=== PATIENT | male | born 1950 | race African-American/Black ===

== ENCOUNTER → 2017-08-18 | Outpatient (CLI) | payer MEDICARE, OTHER | LOC: COL.RAD 08:04 | DX: M25.551 Pain in right hip (principal); G89.18 Other acute postprocedural pain; Z96.641 Presence of right artificial hip joint ==

== ENCOUNTER → 2017-09-26 | Outpatient (CLI) | payer MEDICARE, OTHER | LOC: COL.RAD 08:00 | DX: M25.551 Pain in right hip (principal); G89.29 Other chronic pain | CPT/HCPCS: J3301; Q9967 ==

== ENCOUNTER 2019-05-29 07:45 | Outpatient (RCR) | payer MEDICARE, OTHER | END 2019-06-05 | LOC: WSPT | DX: E66.9 Obesity, unspecified (principal); M25.561 Pain in right knee; M25.562 Pain in left knee; M54.5 Low back pain; G89.29 Other chronic pain ==

== ENCOUNTER 2020-08-07 10:56 | Day surgery (SDC) | payer MEDICARE, OTHER ==
[2020-08-07] VITALS (197 sets, daily range): BP systolic 92–143; BP diastolic 66–85; PULSE 55–78; TEMP 97.8–98; O2SAT 61–100
[~2020-08-07] VITALS: Ht 175.3 cm; Wt 92.2 kg
[2020-08-07 12:11] LABS: HEMATOCRIT 37.9 % (42.0-52.0); HEMOGLOBIN 12.6 g/dl (13.5-18.0); MEAN CELL VOLUME 96 fl (80.0-100.0); MEAN CORPUSCULAR HEMOGLOBIN 32 pg (27.0-31.0); MEAN CORPUSCULAR HGB CONC 33 g/dl (33.0-37.0); MEAN PLATELET VOLUME 11.4 fl (7.4-10.4); PLATELET COUNT 210 K/mm3 (130-400); RED BLOOD COUNT 3.96 M/mm3 (4.20-5.60); REDCELL DISTRIBUTION WIDTH-CV 13.1 % (11.5-14.5)
[2020-08-07 12:19] LABS: CALCIUM 9.4 mg/dL (8.4-10.2); CREATININE, serum 1.71 (0.66-1.25); POTASSIUM 4.4 mmol/L (3.4-5.0)
[2020-08-07 12:23] LABS: PROTHROMBIN TIME 11.3 SECONDS (9.7-12.8)
[2020-08-07] MEDS ORDERED: ASPIRIN E.C. 8181 MG PO (12:36)
[2020-08-07] MEDS ORDERED: MEVACOR10 MG PO (12:36)
[2020-08-07] MEDS ORDERED: ZYLOPRIM 100MG100 MG PO (12:37)
[2020-08-07] MEDS ORDERED: NOVOLOG 100U100 U/M1 SQ (12:37)
[2020-08-07] MEDS ORDERED: ACCUPRIL40MGTAB PO (12:38)
[2020-08-07] MEDS ORDERED: PRILOSEC 20MG20 MG PO (12:39)
[2020-08-07] MEDS ORDERED: NITROSTAT0.4 MG/TAB SL (12:39)
[2020-08-07] MEDS ORDERED: PHENTERMINE15 MG PO (12:40)
[2020-08-07] MEDS ORDERED: VICTOZA6 MG/ML SQ (12:40)
[2020-08-07] MEDS ORDERED: TOPAMAX 25MG25 M1 PO (12:41)
[2020-08-07] MEDS ORDERED: DAILY MULTIPLE1 T18 PO (12:42)
--- NOTE | 2020-08-07 19:16 | NUR ---
report received from BRAYAN Brown.
--- NOTE | 2020-08-07 20:00 | NUR ---
PT STILL ON FLAT TIME DOING WELL, NO COMPLAINTS OF PAIN/SOB/DISCOMFORT. PT'S RIGHT FEMORAL SITE WITH GAUZE AND TEGADERM, C/D/I, PULSES ON EXTREMITIES GOOD AND NO HEMATOMA OR BLEEDING NOTED.
--- NOTE | 2020-08-07 21:55 | NUR ---
FLAT TIME DONE. PT DENIES ANY PAIN/DISCOMFORT. VSS. RIGHT FEMORAL SITE C/D/I, NO HEMATOMA NOR BLEEDING NOTED.
[2020-08-08] VITALS (122 sets, daily range): BP systolic 114–154; BP diastolic 67–80; PULSE 57–80; TEMP 97.8–98; O2SAT 91–100
--- NOTE | 2020-08-08 04:27 | NUR ---
REPORT GIVEN TO BRAYAN ELIAS.
--- NOTE | 2020-08-08 05:10 | NUR ---
Received report from Olga and received patient via wheelchair from ICU. Patient is alert and oriented. With INT on left forearm. Gauze on right femoral is clean, dry and intact. He denies pain. Call light within reach.
--- NOTE | 2020-08-08 05:12 | NUR ---
pt transferred to room 318 via wheelchair, all belongings with him. pt's right femoral site showed to Nurse Kay. site c/d/i, no hematoma or bleeding.
[2020-08-08 05:18] LABS: BASO % 0.5 % (0.0-2.0); EOS # 0.3 (0.0-0.7); GRAN # 3.4 (1.4-6.5); GRAN % 58.6 % (42.2-75.2); HEMATOCRIT 38.8 % (42.0-52.0); HEMOGLOBIN 12.7 g/dl (13.5-18.0); LYMPH # 1.5 (1.2-3.4); MEAN CELL VOLUME 95 fl (80.0-100.0); MEAN CORPUSCULAR HEMOGLOBIN 31 pg (27.0-31.0); MEAN CORPUSCULAR HGB CONC 33 g/dl (33.0-37.0); MEAN PLATELET VOLUME 11.2 fl (7.4-10.4); MONO # 0.6 (0.1-0.6); MONO % 9.6 % (1.7-9.3); PLATELET COUNT 191 K/mm3 (130-400); RED BLOOD COUNT 4.08 M/mm3 (4.20-5.60); REDCELL DISTRIBUTION WIDTH-CV 13.2 % (11.5-14.5)
[2020-08-08 05:25] LABS: CALCIUM 9.1 mg/dL (8.4-10.2); CREATININE, serum 1.76 (0.66-1.25); POTASSIUM 4.3 mmol/L (3.4-5.0)
--- NOTE | 2020-08-08 09:34 | NUR ---
Pt assessment complete. Pt is laying in bed upon entry, he is A/O x4. His breathing is even and unlabored on RA. Pt denies SOB. Reports dull pain to cath entry site of R femoral. Site free from hematoma and is CDI. POC discussed with patient who verbalizes understanding. No further needs at this time. Call light within reach.
--- NOTE | 2020-08-08 11:22 | NUR ---
Discharge paperwork and instructions reviewed with patient. All questions answered at this time. IV to LFA dc'd catheter tip intact. Pt awaiting ride at this time.
--- NOTE | 2020-08-08 12:15 | NUR ---
Pt wheeled out at this time.
== END 2020-08-08 12:15 | disposition home or self-care (01) ==
LOC: COL.CAR 10:56 → ICU 17:42 → MEDICAL 08-08 04:59 → ICU 08-08 04:59 → MEDICAL 08-08 04:59 → COL.CAR 08-08 12:15
PROVIDERS: Internal Medicine Interventional Cardiology
DX: I25.10 Atherosclerotic heart disease of native coronary artery without angina pectoris (principal); E11.9 Type 2 diabetes mellitus without complications; E78.5 Hyperlipidemia, unspecified; F32.9 Major depressive disorder, single episode, unspecified; D64.9 Anemia, unspecified; Z79.4 Long term (current) use of insulin; Z79.82 Long term (current) use of aspirin; Z79.899 Other long term (current) drug therapy; I08.3 Combined rheumatic disorders of mitral, aortic and tricuspid valves
CPT/HCPCS: OP; C9600; J0583; J1644; J2250; J3010; J7030

== ENCOUNTER 2023-01-03 06:37 | Day surgery (SDC) | payer MEDICARE ==
[~2023-01-03] VITALS: Ht 175.3 cm; Wt 88.2 kg
[~2023-01-03 06:37] MED LIST: ACCUPRIL40MGTAB PO; ASPIRIN E.C. 8181 MG PO; DAILY MULTIPLE1 T18 PO; MEVACOR10 MG PO; NITROSTAT0.4 MG/TAB SL; NOVOLOG 100U100 U/M1 SQ; PHENTERMINE15 MG PO; PRILOSEC 20MG20 MG PO; TOPAMAX 25MG25 M1 PO; VICTOZA6 MG/ML SQ; ZYLOPRIM 100MG100 MG PO
[2023-01-03 07:25] VITALS: BP 121/70; PULSE 75; TEMP 98.2
[2023-01-03] MEDS ORDERED: PLAVIX 75MG TAB75 MG PO (07:34)
[2023-01-03] MEDS ORDERED: MOUNJARO15 MG/0.5 SQ (07:35)
[2023-01-03] MEDS ORDERED: FARXIGA10 PO (07:35)
[2023-01-03 09:00] VITALS: BP 99/62; PULSE 85; TEMP 98.2
--- NOTE | 2023-01-03 09:00 | NUR ---
899 PATIENT RETURNS TO ROOM 3 VIA CART. PATIENT IS DROWSY BUT ALERTS EASILY TO VERBAL STIMULI. PATIENT AMBULATES TO RECLINER IN ROOM WITH THE ASSISTANCE OF 2 NURSES. RESPIRATIONS EVEN AND UNLABORED. VITAL SIGNS OBTAINED. 904 PATIENT REQUESTED JELLO AND WATER. NO DIFFICULTIES SWALLOWING. 907 DOCTOR IN TO SPEAK WITH PATIENT. 929 DISCHARGE INSTRUCTIONS PROVIDED TO PATIENT. PATIENT VERBALIZED UNDERSTANDING WITH NO FURTHER QUESTIONS OR CONCERNS. 934 DISCONTINUED IV FROM RIGHT HAND WITH NO DIFFICULTIES. 939 PATIENT DRESSED SELF. 45 PATIENT DISCHARGES FROM UNIT VIA WHEELCHAIR.
[2023-01-03 09:15] VITALS: BP 108/62; PULSE 74
[2023-01-03 09:30] VITALS: BP 126/71; PULSE 65
== END 2023-01-03 09:45 | disposition home or self-care (01) ==
LOC: SDCO 06:37
DX: D12.2 Benign neoplasm of ascending colon (principal); K63.5 Polyp of colon; K57.30 Diverticulosis of large intestine without perforation or abscess without bleeding; K64.0 First degree hemorrhoids; K63.89 Other specified diseases of intestine; Z87.891 Personal history of nicotine dependence
CPT/HCPCS: J2704; J7030